=== PATIENT | female | born 1950 | race Caucasian/White ===

== ENCOUNTER 2021-02-17 08:53 | Observation (INO) ==
--- NOTE | 2021-02-17 09:43 | Emergency Department Note ---
History of Present Illness General Chief complaint: Rectal Bleed Stated complaint: RECTAL BLEED Time Seen by Provider: 02/17/21 09:22 Source: patient History of Present Illness Provider complaint: Rectal bleeding Onset (ago): hour(s) Location: buttocks Pain Consistency: + intermittent Quality: + other (Dark red blood) Relieved By: + none Associated symptoms: no chest pain, no cough, no fever/chills, no nausea/vomiting, no shortness of breath and no weakness This is a 71-year-old female who presents with rectal bleeding abdominal discomfort starting this morning approximately 6 AM. She described the pain as a cramping sensation in her lower abdomen. It was relieved after having a bowel movement. She had a little bit of pain yesterday as well. She had not had a bowel movement in some time and so she had a hard stool yesterday which was somewhat painful coming out. She states the stool is dark but not black. She states that today she had initially some stool when she defecated but now dark blood is coming out. He has no pain with defecation currently. She has not had a colonoscopy. She is scheduled for one last year but never had one due to the Covid pandemic. She denies any fever, lightheadedness, cough or cold symptoms, chest pain, shortness of breath, vomiting or urinary symptoms. She is not on any blood thinners other than a baby aspirin daily. She denies significant NS AID use. She denies any family history of colon cancer. She states she has a history of external hemorrhoids. Home Medications Medication Instructions Recorded Confirmed Type aspirin [Aspir-81] 81 mg PO QAM 02/17/21 02/17/21 History cholecalciferol (vitamin D3) 0 mcg PO QAM 02/17/21 02/17/21 History [Vitamin D3] cyanocobalamin (vitamin B-12) 0 mcg PO QAM 02/17/21 02/17/21 History [Vitamin B-12] garlic 0 mg PO QAM 02/17/21 02/17/21 History omega 0-uyk-rph-fish oil [Fish Oil] 1 cap PO QAM 02/17/21 02/17/21 History Allergies Allergy/AdvReac Type Severity Reaction Status Date / Time No Known Allergies Allergy Unverified 02/17/21 10:37 Past Med/Surg History Medical History (Updated 02/17/21 @ 14:32 by Ramon Dorman MD) No significant past medical history Surgical History (Updated 02/17/21 @ 12:34 by Cristino Akins MD) History of cataract surgery History of hysterectomy b/l oophrectomy Family History (Updated 02/17/21 @ 12:16 by Cristino Akins MD) Denies family history of Cancer Social History Smoking Status: Never smoker Preferred Language: Divehi Feels Safe at Home: Yes Review of Systems See HPI for pertinent positives & negatives. and A total of 10 systems reviewed and were otherwise negative Physical Exam Vital Signs Vital Signs - 24 hr 02/17/21 08:56 02/17/21 09:36 02/17/21 09:51 Temperature 36.4 C L Temperature Source Temporal Artery Scan Pulse Rate 104 H 102 H Pulse Rate [Right Finger] Pulse Rate from SpO2 Sensor 108 H Pulse Rhythm [Right Finger] Pulse Strength [Right Finger] Respiratory Rate 18 22 Respiratory Effort / Characteristics Respiratory Depth Blood Pressure 119/72 146/84 H Blood Pressure [Right Arm] Blood Pressure Mean 87 104 Blood Pressure Mean [Right Arm] Blood Pressure Position Sitting Blood Pressure Position [Right Arm] Pulse Oximetry 98 97 Oxygen Delivery Method Room Air Room Air Sepsis Recent Fever Within 48 Hours No Sepsis New/Unexplained Change in Mental Status No Sepsis Action Taken by Nursing No Action Required 02/17/21 09:53 02/17/21 10:00 02/17/21 11:12 Temperature Temperature Source Pulse Rate 94 H 95 H 104 H Pulse Rate [Right Finger] Pulse Rate from SpO2 Sensor 94 H 95 H 105 H Pulse Rhythm [Right Finger] Pulse Strength [Right Finger] Respiratory Rate 17 18 17 Respiratory Effort / Characteristics Respiratory Depth Blood Pressure 145/103 H Blood Pressure [Right Arm] Blood Pressure Mean 117 Blood Pressure Mean [Right Arm] Blood Pressure Position Blood Pressure Position [Right Arm] Pulse Oximetry 97 97 98 Oxygen Delivery Method Sepsis Recent Fever Within 48 Hours Sepsis New/Unexplained Change in Mental Status Sepsis Action Taken by Nursing 02/17/21 11:20 02/17/21 11:30 02/17/21 11:33 Temperature Temperature Source Pulse Rate 103 H 119 H Pulse Rate [Right Finger] Pulse Rate from SpO2 Sensor 103 H 119 H Pulse Rhythm [Right Finger] Pulse Strength [Right Finger] Respiratory Rate 13 28 H Respiratory Effort / Characteristics Respiratory Depth Blood Pressure Blood Pressure [Right Arm] Blood Pressure Mean 140 Blood Pressure Mean [Right Arm] Blood Pressure Position Blood Pressure Position [Right Arm] Pulse Oximetry 97 97 Oxygen Delivery Method Sepsis Recent Fever Within 48 Hours Sepsis New/Unexplained Change in Mental Status Sepsis Action Taken by Nursing 02/17/21 11:40 02/17/21 11:50 02/17/21 12:00 Temperature Temperature Source Pulse Rate 103 H 105 H Pulse Rate [Right Finger] Pulse Rate from SpO2 Sensor 104 H 109 H 107 H Pulse Rhythm [Right Finger] Pulse Strength [Right Finger] Respiratory Rate 14 16 Respiratory Effort / Characteristics Respiratory Depth Blood Pressure Blood Pressure [Right Arm] Blood Pressure Mean Blood Pressure Mean [Right Arm] Blood Pressure Position Blood Pressure Position [Right Arm] Pulse Oximetry 96 95 96 Oxygen Delivery Method Sepsis Recent Fever Within 48 Hours Sepsis New/Unexplained Change in Mental Status Sepsis Action Taken by Nursing 02/17/21 12:10 02/17/21 12:15 Temperature Temperature Source Pulse Rate Pulse Rate [Right Finger] 100 H Pulse Rate from SpO2 Sensor 108 H Pulse Rhythm [Right Finger] Regular Pulse Strength [Right Finger] Normal Respiratory Rate 20 Respiratory Effort / Characteristics Non-Labored Spontaneous Respiratory Depth Normal Blood Pressure Blood Pressure [Right Arm] 136/83 Blood Pressure Mean Blood Pressure Mean [Right Arm] 100 Blood Pressure Position Blood Pressure Position [Right Arm] Sitting Pulse Oximetry 96 97 Oxygen Delivery Method Room Air Sepsis Recent Fever Within 48 Hours Sepsis New/Unexplained Change in Mental Status Sepsis Action Taken by Nursing Constitutional: Vital signs reviewed. Eyes: Pupils are equal round reactive to light. Conjunctiva are noninjected. ENT: Pharynx is clear without erythema or exudate. Mucous membranes are moist. Neck supple without meningeal signs. Respiratory: Clear to auscultation bilaterally. Breath sounds are equal bilaterally. Cardiovascular: Regular rate and rhythm. No rubs or gallops. GI: Soft, nondistended and nontender. Bowel sounds are present. Rectal: Nonbleeding external hemorrhoid at 9:00. Dark red blood no stool present. Musculoskeletal: No peripheral edema. No lower extremity tenderness. Integumentary: No cyanosis. or jaundice. Neurological: The patient is awake and alert. No focal deficits. Psychiatric: Normal affect. Not anxious appearing. Course Administered Medications Discontinued Medications Sodium Chloride (Nss 1000ml) 500 mls @ 999 mls/hr IV .Q31M ONE Stop: 02/17/21 12:40 Last Infusion: 02/17/21 13:16 Dose: 0 mls/hr Documented by: [id number] Admin: 02/17/21 12:15 Dose: 999 mls/hr Documented by: [id number] Ioversol (Optiray 320 100ml) 94 ml IV ONCE ONE Stop: 02/17/21 10:26 Last Admin: 02/17/21 10:26 Dose: 94 ml Documented by: [id number] Medical Decision Making Differential Diagnosis GI bleed, internal hemorrhoids, diverticulosis, diverticulitis, AVM, colon mass Medical Records Attestation: I reviewed the patient's medical records. I did perform a limited focused review of portions of the patient's old chart on the electronic medical record. The patient has had no recent pertinent visits to this hospital. Home Medications Current Medication List: was personally reviewed by me Laboratory Data Attestation: I reviewed the patient's lab results. Result diagrams: 02/17/21 11:02 02/17/21 09:39 Lab Results 02/17/21 02/17/21 02/17/21 Range/Units 09:36 09:39 09:39 WBC 12.04 H (4.8-10.8) K/uL RBC 4.53 (4.2-5.4) M/uL Hgb 13.8 (12.0-16.0) g/dL Hct 39.4 (37-47) % MCV 87.0 (80-100) fL MCH 30.5 (25-34) pg MCHC 35.0 (32-36) g/dL RDW Std Deviation 40.7 (36.4-46.3) fL RDW Coeff of Nicole 12.7 (11.5-14.5) % Plt Count 296 (130-400) K/uL MPV 9.8 (7.4-10.4) fL Immature Gran % (Auto) 0.7 % Neut % (Auto) 65.8 % Lymph % (Auto) 25.7 % [place] % (Auto) 6.6 % Eos % (Auto) 1.0 % Baso % (Auto) 0.2 % Neut # (Auto) 7.91 H (1.4-6.5) K/uL Lymph # (Auto) 3.09 (1.2-3.4) K/uL [place] # (Auto) 0.80 H (0.11-0.59) K/uL Eos # (Auto) 0.12 (0-0.5) K/uL Baso # (Auto) 0.03 (0-0.2) K/uL Immature Gran # (Auto) 0.09 H (0.00-0.02) K/uL PT (9.0-12.0) Seconds INR (0.9-1.1) APTT (21.0-31.0) Seconds PTT Ratio Sodium (136-145) mmol/L Potassium (3.5-5.1) mmol/L Chloride (98-107) mmol/L Carbon Dioxide (21-32) mmol/L Anion Gap (3-11) BUN (7-18) mg/dl Creatinine (0.6-1.2) mg/dl Est Cr Clr Drug Dosing ml/min Est GFR ( Amer) ml/min Est GFR (Non-Af Amer) ml/min BUN/Creatinine Ratio (10-20) Glucose (70-99) mg/dl Calcium (8.5-10.1) mg/dl Total Bilirubin (0.2-1) mg/dl AST (15-37) U/L ALT (12-78) U/L Alkaline Phosphatase (45-117) U/L Total Protein (6.4-8.2) gm/dl Albumin (3.4-5.0) gm/dl Globulin (2.5-4.0) gm/dl Albumin/Globulin Ratio (0.9-2) POC Stool Occult Blood Positive A (Negative) COVID-19 Eval Order SARS-CoV-2 (PCR) (Negative) Blood Type B Positive Antibody Screen NEGATIVE 02/17/21 02/17/21 02/17/21 Range/Units 09:39 09:39 11:02 WBC (4.8-10.8) K/uL RBC (4.2-5.4) M/uL Hgb 12.8 (12.0-16.0) g/dL Hct 36.6 L (37-47) % MCV (80-100) fL MCH (25-34) pg MCHC (32-36) g/dL RDW Std Deviation (36.4-46.3) fL RDW Coeff of Nicole (11.5-14.5) % Plt Count (130-400) K/uL MPV (7.4-10.4) fL Immature Gran % (Auto) % Neut % (Auto) % Lymph % (Auto) % [place] % (Auto) % Eos % (Auto) % Baso % (Auto) % Neut # (Auto) (1.4-6.5) K/uL Lymph # (Auto) (1.2-3.4) K/uL [place] # (Auto) (0.11-0.59) K/uL Eos # (Auto) (0-0.5) K/uL Baso # (Auto) (0-0.2) K/uL Immature Gran # (Auto) (0.00-0.02) K/uL PT 10.4 (9.0-12.0) Seconds INR 1.0 (0.9-1.1) APTT 24.4 (21.0-31.0) Seconds PTT Ratio 0.9 Sodium 141 (136-145) mmol/L Potassium 4.2 (3.5-5.1) mmol/L Chloride 110 H (98-107) mmol/L Carbon Dioxide 22 (21-32) mmol/L Anion Gap 9.0 (3-11) BUN 21 H (7-18) mg/dl Creatinine 0.62 (0.6-1.2) mg/dl Est Cr Clr Drug Dosing 80.5 ml/min Est GFR ( Amer) 106.6 ml/min Est GFR (Non-Af Amer) 92.0 ml/min BUN/Creatinine Ratio 33.8 H (10-20) Glucose 152 H (70-99) mg/dl Calcium 9.1 (8.5-10.1) mg/dl Total Bilirubin 0.3 (0.2-1) mg/dl AST 21 (15-37) U/L ALT 49 (12-78) U/L Alkaline Phosphatase 94 (45-117) U/L Total Protein 7.0 (6.4-8.2) gm/dl Albumin 3.8 (3.4-5.0) gm/dl Globulin 3.2 (2.5-4.0) gm/dl Albumin/Globulin Ratio 1.2 (0.9-2) POC Stool Occult Blood (Negative) COVID-19 Eval Order SARS-CoV-2 (PCR) (Negative) Blood Type Antibody Screen 02/17/21 02/17/21 Range/Units 12:50 12:50 WBC (4.8-10.8) K/uL RBC (4.2-5.4) M/uL Hgb (12.0-16.0) g/dL Hct (37-47) % MCV (80-100) fL MCH (25-34) pg MCHC (32-36) g/dL RDW Std Deviation (36.4-46.3) fL RDW Coeff of Nicole (11.5-14.5) % Plt Count (130-400) K/uL MPV (7.4-10.4) fL Immature Gran % (Auto) % Neut % (Auto) % Lymph % (Auto) % [place] % (Auto) % Eos % (Auto) % Baso % (Auto) % Neut # (Auto) (1.4-6.5) K/uL Lymph # (Auto) (1.2-3.4) K/uL [place] # (Auto) (0.11-0.59) K/uL Eos # (Auto) (0-0.5) K/uL Baso # (Auto) (0-0.2) K/uL Immature Gran # (Auto) (0.00-0.02) K/uL PT (9.0-12.0) Seconds INR (0.9-1.1) APTT (21.0-31.0) Seconds PTT Ratio Sodium (136-145) mmol/L Potassium (3.5-5.1) mmol/L Chloride (98-107) mmol/L Carbon Dioxide (21-32) mmol/L Anion Gap (3-11) BUN (7-18) mg/dl Creatinine (0.6-1.2) mg/dl Est Cr Clr Drug Dosing ml/min Est GFR ( Amer) ml/min Est GFR (Non-Af Amer) ml/min BUN/Creatinine Ratio (10-20) Glucose (70-99) mg/dl Calcium (8.5-10.1) mg/dl Total Bilirubin (0.2-1) mg/dl AST (15-37) U/L ALT (12-78) U/L Alkaline Phosphatase (45-117) U/L Total Protein (6.4-8.2) gm/dl Albumin (3.4-5.0) gm/dl Globulin (2.5-4.0) gm/dl Albumin/Globulin Ratio (0.9-2) POC Stool Occult Blood (Negative) COVID-19 Eval Order Covid19 at [facility] SARS-CoV-2 (PCR) NEGATIVE (Negative) Blood Type Antibody Screen Imaging Data Radiologist's Impression: Abdomen/Pelvis CT 02/17/21 09:36 CT OF THE ABDOMEN AND PELVIS WITH CONTRAST CLINICAL HISTORY: Lower abdominal pain. Rectal bleeding. COMPARISON STUDY: None. TECHNIQUE: Following IV administration of 94 mL of Optiray, axial images of the abdomen and pelvis were obtained from the lung bases to the proximal femurs. I mages were reviewed in the axial, sagittal, and coronal planes. IV contrast was administered without complication. Automated exposure control was utilized for the study. A dose lowering technique was utilized adhering to the principles of ALARA. CT DOSE: 500.43 mGy.cm FINDINGS: Within visualized portions of the lower chest, there is a 9 mm solid slightly lobulated right lower lobe nodule on image 13 of 461. This does not contain calcifications. There is no definite macroscopic fat. Hepatic steatosis is noted. The spleen, adrenal glands, kidneys and pancreas are normal. There is no biliary or pancreatic ductal dilatation. No peripancreatic or pericholecystic infiltration is present. There is mild dilatation of the proximal celiac axis, measuring 1.1 cm in caliber. There is no hydronephrosis. There is no evidence for a bowel obstruction. Sigmoid diverticulosis is noted without evidence for acute diverticulitis. Note is made of hyperdense material suggestive of intraluminal contrast within the mid ascending colon. There is an adjacent 2.5 cm lobulated density within the ascending colon on image 247. There is no lymphadenopathy. There is no evidence for a bowel obstruction. Major vasculature is patent. There is moderate plaque of the abdominal aorta which is normal in caliber. No suspicious osseous lesions are present. IMPRESSION: 1. Hyperdense material suggestive of intraluminal contrast within the mid ascending colon. This suggests active intraluminal colonic bleeding. Adjacent 2.5 cm lobulated density within the ascending colon. This is suboptimally assessed by CT and could reflect an underlying mass, blood clot or stool. Correlation with follow-up colonoscopy is recommended. Findings discussed with Dr. Dorman at time of dictation. 2. 9 mm solid right lower lobe pulmonary nodule. This nodule is indeterminate. A chest CT in 3 months is recommended. 3. Left colon diverticulosis without evidence for acute diverticulitis. 4. Hepatic steatosis. ACT 112: Positive. There are findings on this exam that require communication between the performing entity and the patient following Patient Test Result Information Act ([place] Act 112) guidelines. Electronically signed by: Lex Granados M.D. 02/17/2021 10:45 AM ECG Data Attestation: I personally reviewed and interpreted this ECG as follows: Indication: + tachycardia and + other (GI bleed) Rate (beats per minute): 106 Rhythm: + sinus tachycardia ECG ST segments: no ST elevation and no T-wave inversions ECG Findings: no PVCs MDM Narrative I did evaluate the patient as noted above. The patient is presenting with rectal bleeding. She does not have any other symptoms other than resolved abdominal discomfort. She does have dark blood without stool on rectal examination. IV access was established. I did place an order for continuous cardiac monitoring. The monitor showed sinus tachycardia at a rate of 102 bpm. I did order and personally review the patient's 12-lead EKG as described above. She has no evidence of acute ischemia. I did order and review the patient's blood work as noted in the electronic medical record. Her white blood cell count is 12. Hemoglobin is 13.8. Repeat hemoglobin an hour and 20 minutes later was 12.8. Platelet count is within normal limits. Electrolytes and LFTs are within normal limits other than a chloride of 110. I did order a CT of the abdomen and pelvis. I did review the images myself as well as the radiology report as described above. She does appear to have intravenous dye in the lumen of the bowel on the right colon. There is also a lobulated structure associated with it which may be blood or a mass. I did discuss the case with the radiologist. I did discuss the case with Dr. Gonzalez of gastroenterology who recommended the patient be prepped for colonoscopy for tomorrow morning. I did discuss the case with the hospitalist and behavioral health case manager for admission to the hospital. I did discuss the test results and the plan with the patient. Impression & Plan Lower GI bleed Discharge Plan Visit Data Chief Complaint: Rectal Bleed Stated Complaint: RECTAL BLEED ED Provider: Ramon Dorman Discharge Problem: Lower GI bleed Forms Stand Alone Forms: My [facility] Prescriptions Prescriptions: No Action cyanocobalamin (vitamin B-12) [Vitamin B-12] 1,000 mcg Tablet 0 mcg PO QAM RF: 0 aspirin [Aspir-81] 81 mg Tablet,Delayed Release (Dr/Ec) 81 mg PO QAM RF: 0 garlic 1,000 mg Capsule 0 mg PO QAM RF: 0 cholecalciferol (vitamin D3) [Vitamin D3] 25 mcg (1,000 unit) Tablet 0 mcg PO QAM RF: 0 omega 9-lny-bfd-fish oil [Fish Oil] 1,200 (144-216) mg Capsule 1 cap PO QAM RF: 0
[2021-02-17 09:53] LABS: Basophils # (auto) 0.03 K/uL (0-0.2); Basophils % (auto) 0.2 %; Eosinophils # (auto) 0.12 K/uL (0-0.5); Hematocrit (blood only) 39.4 % (37-47); Hemoglobin 13.8 g/dL (12.0-16.0); Immature Granulocytes # (auto) 0.09 K/uL (0.00-0.02); Immature Granulocytes % (auto) 0.7 %; Lymphocytes # (auto) 3.09 K/uL (1.2-3.4); Lymphocytes % (auto) 25.7 %; Mean Corpuscular Hemoglobin 30.5 pg (25-34); Mean Platelet Volume 9.8 fL (7.4-10.4); Monocytes % (auto) 6.6 %; Neutrophils # (auto) 7.91 K/uL (1.4-6.5); Neutrophils % (auto) 65.8 %; Platelet Count 296 K/uL (130-400); RDW Coefficient of Variation 12.7 % (11.5-14.5); RDW Standard Deviation 40.7 fL (36.4-46.3); Red Blood Count 4.53 M/uL (4.2-5.4); White Blood Count 12.04 K/uL (4.8-10.8)
[2021-02-17 10:04] LABS: Partial Thromboplastin Ratio 0.9; Partial Thromboplastin Time 24.4 Seconds (21.0-31.0); Prothrombin Time 10.4 Seconds (9.0-12.0)
[2021-02-17 10:10] LABS: Albumin Level 3.8 gm/dl (3.4-5.0); BUN Creatinine Ratio 33.8 (10-20); Calcium 9.1 mg/dl (8.5-10.1); Creatinine Clr Calc Pharmacy 80.5 ml/min; Est GFR (African American) 106.6 ml/min; Potassium 4.2 mmol/L (3.5-5.1)
[2021-02-17 10:13] LABS: Albumin Globulin Ratio 1.2 (0.9-2); Bilirubin,Total 0.3 mg/dl (0.2-1); Globulin 3.2 gm/dl (2.5-4.0)
[2021-02-17] MEDS ORDERED: OPTIRAY 320 100ml IV ONE (10:25)
--- NOTE | 2021-02-17 10:46 | CT Scan Report ---
CT OF THE ABDOMEN AND PELVIS WITH CONTRAST CLINICAL HISTORY: Lower abdominal pain. Rectal bleeding. COMPARISON STUDY: None. TECHNIQUE: Following IV administration of 94 mL of Optiray, axial images of the abdomen and pelvis we re obtained from the lung bases to the proximal femurs. Images were reviewed in the axial, sagittal, and coronal planes. IV contrast was administered without complication. Automated exposure control wa s utilized for the study. A dose lowering technique was utilized adhering to the principles of ALARA . CT DOSE: 500.43 mGy.cm FINDINGS: Within visualized portions of the lower chest, there is a 9 mm solid slightly lobulated rig ht lower lobe nodule on image 13 of 461. This does not contain calcifications. There is no definite m acroscopic fat. Hepatic steatosis is noted. The spleen, adrenal glands, kidneys and pancreas are norm al. There is no biliary or pancreatic ductal dilatation. No peripancreatic or pericholecystic infiltr ation is present. There is mild dilatation of the proximal celiac axis, measuring 1.1 cm in caliber. There is no hydronephrosis. There is no evidence for a bowel obstruction. Sigmoid diverticulosis is n oted without evidence for acute diverticulitis. Note is made of hyperdense material suggestive of int raluminal contrast within the mid ascending colon. There is an adjacent 2.5 cm lobulated density with in the ascending colon on image 247. There is no lymphadenopathy. There is no evidence for a bowel ob struction. Major vasculature is patent. There is moderate plaque of the abdominal aorta which is norm al in caliber. No suspicious osseous lesions are present. IMPRESSION: 1. Hyperdense material suggestive of intraluminal contrast within the mid ascending colon. This sugge sts active intraluminal colonic bleeding. Adjacent 2.5 cm lobulated density within the ascending colo n. This is suboptimally assessed by CT and could reflect an underlying mass, blood clot or stool. Cor relation with follow-up colonoscopy is recommended. Findings discussed with Dr. Dorman at time of dicta tion. 2. 9 mm solid right lower lobe pulmonary nodule. This nodule is indeterminate. A chest CT in 3 months is recommended. 3. Left colon diverticulosis without evidence for acute diverticulitis. 4. Hepatic steatosis. ACT 112: Positive. There are findings on this exam that require communication between the performing entity and the patient following Patient Test Result Information Act ([place] Act 112) guidelines. Electronically signed by: Lex Granados M.D. 02/17/2021 10:45 AM
[2021-02-17 11:13] LABS: Hematocrit (blood only) 36.6 % (37-47); Hemoglobin 12.8 g/dL (12.0-16.0)
--- NOTE | 2021-02-17 11:53 | History & Physical Report ---
Date of Service February 17, 2021 Assessment & Plan (1) Lower GI bleed: Concerning for colon cancer with 2.5 cm lobulated density in ascending colon. Trend H&H Q6H. Clear liquid diet today, NPO after midnight. Maintenance IV fluids with half NSS. Consult GI for colonoscopy tomorrow. (2) Pulmonary nodule: 9 mm solid right lower lobe pulmonary nodule. Repeat CT chest in 3 months. (3) History of cataract surgery: Patient will have her daughter bring in eyedrops. Will prescribe once they are delivered. Admission and Anticipated Discharge Date Admission Date: February 17, 2021 History of Present Illness Chief Complaint: Rectal bleeding Primary Care Provider: Jessica Ernst PA-C Leandra Lee is a 71 year old female who presents to the ER due to rectal bleeding that starting this morning at approximately 6am. Last took an aspirin yesterday (takes for primary prevention). Blood initially dark but now increasingly red. Constipation yesterday morning had to strain to go, but otherwise no recent change in bowel movements. No abdominal pain, nausea or vomiting. Prior colonoscopy normal 10 years ago although she does not remember who performed this. No NSAID use. No family history of colon cancer, IBS or IBD. In the ER hemoglobin decreased from 13.9-12.8. CT concerning for active intraluminal colonic bleeding. Adjacent 2.5 cm lobulated density in the ascending colon. She was referred to medicine for admission ongoing management of GI bleed. Allergies Allergy/AdvReac Type Severity Reaction Status Date / Time No Known Allergies Allergy Unverified 02/17/21 10:37 Home Medications Medication Instructions Recorded Confirmed Type aspirin [Aspir-81] 81 mg PO QAM 02/17/21 02/17/21 History cholecalciferol (vitamin D3) 0 mcg PO QAM 02/17/21 02/17/21 History [Vitamin D3] cyanocobalamin (vitamin B-12) 0 mcg PO QAM 02/17/21 02/17/21 History [Vitamin B-12] garlic 0 mg PO QAM 02/17/21 02/17/21 History omega 0-khn-gdz-fish oil [Fish Oil] 1 cap PO QAM 02/17/21 02/17/21 History Past Med/Surg History Medical History (Updated 02/17/21 @ 12:30 by Cristino Akins MD) No significant past medical history Surgical History (Updated 02/17/21 @ 12:34 by Cristino Akins MD) History of cataract surgery History of hysterectomy b/l oophrectomy Family History (Updated 02/17/21 @ 12:16 by Cristino Akins MD) Denies family history of Cancer Social History Smoking Status: Never smoker Preferred Language: Sri Lankan Feels Safe at Home: Yes Review of Systems Review of Systems: All systems reviewed & are unremarkable except as noted in HPI & below Physical Exam Constitutional: WD/WN, vitals as above Eyes: PERRL, conjunctivae normal, anicteric sclerae ENMT: external ear and nose normal, oropharynx normal Neck: trachea midline, no thyromegaly Respiratory: normal respiratory effort, lungs clear to auscultation Cardiovascular: Rate/Rhythm: regular rhythm and + tachycardic Heart Sounds: no murmur Extremities: normal capillary refill; no calf tenderness and no pedal edema Gastrointestinal (Abdomen): normal bowel sounds, soft, nontender, no hepatosplenomegaly Musculoskeletal: no cyanosis or clubbing, extremities motor strength 5/5 Skin: no rashes, warm and dry Neurologic: moves all extremities and awake; no focal motor deficits and not confused Psychiatric: A+Ox3, euthymic affect Results & Data Results & Data ([facility]) Vital Signs (Past 12 Hours) Vital Signs Temp Pulse Resp BP Pulse Ox 02/17/21 08:56 36.4 C L 104 H 18 119/[address] OF THE ABDOMEN AND PELVIS WITH CONTRAST IMPRESSION: 1. Hyperdense material suggestive of intraluminal contrast within the mid ascending colon. This suggests active intraluminal colonic bleeding. Adjacent 2.5 cm lobulated density within the ascending colon. This is suboptimally assessed by CT and could reflect an underlying mass, blood clot or stool. Correlation with follow-up colonoscopy is recommended. Findings discussed with Dr. Dorman at time of dictation. 2. 9 mm solid right lower lobe pulmonary nodule. This nodule is indeterminate. A chest CT in 3 months is recommended. 3. Left colon diverticulosis without evidence for acute diverticulitis. 4. Hepatic steatosis. Medications Administered ER Medications Given: None ECG Indication: abdominal pain Rate (beats per minute): 106 Rhythm: sinus tachycardia Findings: no acute ischemic change Comparison ECG Date: no prior available Code Status & VTE Plan Code Status Full VTE Prophylaxis Plan VTE Prophylaxis will be ordered: Yes Reason for no VTE drug order: Contraindicated PG Care Time/CCT Total # of Minutes Spent Total Time Spent with Patient: Total time spent is greater than 50% in coordination of care (as documented) at patient's floor/unit and/or counseling patient: Coding Level of Care Code 00911 Initial Inpt Care Lvl 2 Diagnoses Lower GI bleed K92.2 Pulmonary nodule R91.1 History of cataract surgery Z98.49 Laterality: unspecified laterality (1) History of cataract surgery Laterality: unspecified laterality Qualified Code(s): Z98.49 - Cataract extraction status, unspecified eye
[2021-02-17] MEDS ORDERED: SODIUM CHLORIDE 0.9% 1000ML 500 ML IV ONE (12:10)
[2021-02-17] MEDS ORDERED: ACETAMINOPHEN 325 MG TAB PO PRN (15:55)
[2021-02-17] MEDS: SODIUM CHLORIDE 0.45 % 1,000 ML IV SCH (16:23)
[2021-02-17 16:57] LABS: Hematocrit (blood only) 31.8 % (37-47); Hemoglobin 11.1 g/dL (12.0-16.0)
[2021-02-17] MEDS: LAVAGE SOLUTION 4000ML PO SCH (21:37)
[2021-02-17 23:06] LABS: Hematocrit (blood only) 30.2 % (37-47); Hemoglobin 10.4 g/dL (12.0-16.0)
[2021-02-18] MEDS: SODIUM CHLORIDE 0.45 % 1,000 ML IV SCH ×2 (02:55→12:42)
[2021-02-18] MEDS: LAVAGE SOLUTION 4000ML PO SCH (07:07)
[2021-02-18 07:13] LABS: Basophils # (auto) 0.02 K/uL (0-0.2); Basophils % (auto) 0.2 %; Eosinophils # (auto) 0.32 K/uL (0-0.5); Eosinophils % (auto) 2.8 %; Hematocrit (blood only) 27.1 % (37-47); Hemoglobin 9.2 g/dL (12.0-16.0); Immature Granulocytes # (auto) 0.06 K/uL (0.00-0.02); Immature Granulocytes % (auto) 0.5 %; Lymphocytes # (auto) 4.64 K/uL (1.2-3.4); Mean Corpuscular Hgb Conc 33.9 g/dL (32-36); Mean Corpuscular Volume 88.3 fL (80-100); Mean Platelet Volume 9.6 fL (7.4-10.4); Monocytes # (auto) 0.86 K/uL (0.11-0.59); Monocytes % (auto) 7.4 %; Neutrophils # (auto) 5.71 K/uL (1.4-6.5); Neutrophils % (auto) 49.1 %; Platelet Count 257 K/uL (130-400); RDW Coefficient of Variation 13.1 % (11.5-14.5); RDW Standard Deviation 42.2 fL (36.4-46.3); Red Blood Count 3.07 M/uL (4.2-5.4); White Blood Count 11.61 K/uL (4.8-10.8)
[2021-02-18 07:50] LABS: Calcium 8.2 mg/dl (8.5-10.1); Est GFR (Non-African American) 97.5 ml/min; Potassium 4.1 mmol/L (3.5-5.1)
--- NOTE | 2021-02-18 09:07 | Gastrointestinal Consultation ---
Date of Consultation February 18, 2021 Assessment & Plan (1) Lower GI bleed: (2) Abnormal CT scan, colon: -Keep NPO -Proceed with colonoscopy today for further evaluation of CT findings of active bleeding & possible lesion -Continue to monitor H/H -Supportive care per primary team Thank you for allowing us to participate in the care of this patient. If you should have any further questions or concerns, do not hesitate to contact us at extension [phone] or [phone]. Present on Admission?: Yes Supervising Physician Co-Signing Physician Notes Agree with MARTA Kwan as above Abd: Soft, NT, ND, +BS Continue current therapy NPO Completed bowel prep earlier today Colonoscopy now. History of Present Illness Reason for Consultation: GI bleed Attending Physician: Dorina Alexander MD History of Present Illness Patient is a 71 yo female with PMH of cataracts who presented to the ED on 02/17/21 with an acute onset of rectal bleeding. She notes that this occurred for the first time yesterday. She noted dark blood that then changed to bright red blood as time went on. She notes a chronic history of constipation. She denies straining or abdominal pain. She notes she had a colonoscopy 10 years ago but cannot remember where. She states that it was unremarkable. She denies nausea, vomiting, diarrhea, or unintentional weight loss. She takes a Baby Aspirin daily. She denies family history of GI abnormalities. In the ER hemoglobin was 12.8. H/H now 9.2/27.1. CT concerning for active intraluminal colonic bleeding. Adjacent 2.5 cm lobulated density in the ascending colon. She was referred to medicine for admission ongoing management of GI bleed. Patient completed a bowel prep last night. She reports clear bowel movements at present. Allergies Allergy/AdvReac Type Severity Reaction Status Date / Time No Known Allergies Allergy Unverified 02/18/21 15:07 Home Medications Medication Instructions Recorded Confirmed Type aspirin [Aspir-81] 81 mg PO QAM 02/17/21 02/17/21 History cholecalciferol (vitamin D3) 0 mcg PO QAM 02/17/21 02/17/21 History [Vitamin D3] cyanocobalamin (vitamin B-12) 0 mcg PO QAM 02/17/21 02/17/21 History [Vitamin B-12] garlic 0 mg PO QAM 02/17/21 02/17/21 History omega 2-lxc-bfe-fish oil [Fish Oil] 1 cap PO QAM 02/17/21 02/17/21 History Patient History Medical History (Updated 02/18/21 @ 09:21 by Kurt Rahman MD) Abnormal CT scan, colon Lower GI bleed No significant past medical history Pulmonary nodule Surgical History History of cataract surgery History of hysterectomy b/l oophrectomy Family History Denies family history of Cancer Social History Smoking Status: Never smoker Second Hand Exposure: No; Do You Dip or Chew Tobacco: No; Tobacco Cessation Education Requested by Patient: No Hx Alcohol Use: No Hx Substance Use: No Preferred Language: Guamanian Communication Ability: Effective Beliefs That Will Affect Care: Confucianist Current Living Situation: Alone Feels Safe at Home: No Is there a partner from a previous relationship who is making you feel unsafe now?: No Any Concerns about Your Family Situation: No Would You Like to Speak to Someone About Your Situation: No Safety Concerns: Feels Safe At This Time Assistive Devices: None Review of Systems Constitutional: no weight loss Respiratory: no cough and no dyspnea Cardiovascular: no chest pain Gastrointestinal: + constipation and + blood in stools; no abdominal pain Psychiatric: no problem reported Physical Exam Constitutional: well developed Respiratory: normal respiratory effort Cardiovascular: Extremities: no edema Gastrointestinal (Abdomen): normal bowel sounds, soft, nontender, no hepatosplenomegaly Musculoskeletal: Head/Neck/Chest: normocephalic Psychiatric: A+Ox3, euthymic affect Results & Data ([facility]) Vital Signs (Past 12 Hours) Vital Signs Temp Pulse Resp BP BP Pulse Ox 02/18/21 08:35 36.8 C 90 16 136/74 95 02/17/21 22:30 36.7 C 80 18 132/78 98 PG Care Time/CCT Total # of Minutes Spent Total Time Spent with Patient: Total time spent is greater than 50% in coordination of care (as documented) at patient's floor/unit and/or counseling patient: Coding Level of Care Code 78534 Initial Inpt Care Lvl 3 Diagnoses Lower GI bleed K92.[address] scan, colon R93.3
--- NOTE | 2021-02-18 09:21 | Anesthesiology Consultation ---
Date of Service February 18, 2021 Assessment & Plan Chart Review Chart Review: Acceptable Risk for Surgery, Patient NOT seen in Pre Admission Testing and order entry clerk initiated Consults Requested none ASA ASA3 Proposed Anesthesia Anesthesia Type: MAC Risk / Benefits Reviewed With: PT / POA / Parent / Guardian, Accepts Plan and Informed Consent Obtained History Surgery Operation Date: 02/18/21 16:40 Proposed Procedures p Colonoscopy Dr. Carlos Gonzalez, DO Height/Weight Height: 5 ft 2 in Weight: 73.7 kg Allergies Allergy/AdvReac Type Severity Reaction Status Date / Time No Known Allergies Allergy Unverified 02/17/21 10:37 Medications Home Medications Medication Instructions Recorded Confirmed Last Taken aspirin [Aspir-81] 81 mg PO QAM 02/17/21 02/17/21 02/16/21 cholecalciferol (vitamin D3) 0 mcg PO QAM 02/17/21 02/17/21 02/16/21 [Vitamin D3] cyanocobalamin (vitamin B-12) 0 mcg PO QAM 02/17/21 02/17/21 02/16/21 [Vitamin B-12] garlic 0 mg PO QAM 02/17/21 02/17/21 02/16/21 omega 3-yox-uhl-fish oil [Fish Oil] 1 cap PO QAM 02/17/21 02/17/21 02/16/21 Active Medications Generic Name Dose Route Start Last Admin Trade Name Freq PRN Reason Stop Dose Admin Acetaminophen 650 mg 02/17/21 15:55 02/17/21 18:36 Acetaminophen 325 Mg Tab PO 03/19/21 15:54 650 mg Q4H PRN Administration pain/fever Sodium Chloride 1,000 mls @ 100 mls/hr 02/17/21 15:55 02/18/21 02:55 1/2 Nss IV 03/19/21 15:54 100 mls/hr .Q10H DANA Administration Polyethylene Glycol/Electrolytes 8 dose 02/17/21 21:00 02/18/21 07:07 Lavage Solution 4000ml PO 02/18/21 12:00 8 dose TODAY@0700,2100 DANA Administration Past Medical History Medical History (Updated 02/18/21 @ 09:21 by Kurt Rahman MD) Abnormal CT scan, colon Lower GI bleed No significant past medical history Pulmonary nodule Past Family History Family History Denies family history of Cancer Past Surgical History Surgical History History of cataract surgery History of hysterectomy b/l oophrectomy Social History Smoking Status: Never smoker Do You Dip or Chew Tobacco: No Hx Alcohol Use: No Hx Substance Use: No Physical Exam Vital Signs Last Vital Signs Temp 36.8 C 02/18/21 08:35 Pulse 90 02/18/21 08:35 Resp 16 02/18/21 08:35 BP 136/74 02/18/21 08:35 Pulse Ox 95 02/18/21 08:35 Testing Laboratory Results 02/18/21 06:46 02/18/21 06:46 PT 10.4 Seconds (9.0-12.0) 02/17/21 09:39 INR 1.0 (0.9-1.1) 02/17/21 09:39 APTT 24.4 Seconds (21.0-31.0) 02/17/21 09:39 Blood Type B Positive 02/17/21 09:39 Antibody Screen NEGATIVE 02/17/21 09:39 Electrocardiogram 17-FEB-2021 11:10:18 [facility]-EDSTAT ROUTINE RETRIEVAL Sinus tachycardia Otherwise normal ECG No previous ECGs available
[2021-02-18 11:07] LABS: Hemoglobin 10.4 g/dL (12.0-16.0)
--- NOTE | 2021-02-18 12:34 | Electrocardiogram Report ---
Test Reason : Blood Pressure : / mmHG Vent. Rate : 106 BPM Atrial Rate : 106 BPM P-R Int : 114 ms QRS Dur : 082 ms QT Int : 332 ms P-R-T Axes : 056 -15 049 degrees QTc Int : 441 ms Sinus tachycardia Poor R wave progression, consider anterior PA vs. lead placement vs. LVH No previous ECGs available Confirmed by Morgan Mcfarland ([id number]) on 02/18/2021 12:34:10 PM Referred By: REFERRED SELF Confirmed By:Dewayne Mcfarland
[2021-02-18 15:09] LABS: Hematocrit (blood only) 29.4 % (37-47); Hemoglobin 10.2 g/dL (12.0-16.0); Mean Corpuscular Hemoglobin 30.1 pg (25-34); Mean Corpuscular Hgb Conc 34.7 g/dL (32-36); Mean Corpuscular Volume 86.7 fL (80-100); Mean Platelet Volume 9.4 fL (7.4-10.4); Platelet Count 280 K/uL (130-400); RDW Coefficient of Variation 13.1 % (11.5-14.5); RDW Standard Deviation 41.5 fL (36.4-46.3); Red Blood Count 3.39 M/uL (4.2-5.4); White Blood Count 11.31 K/uL (4.8-10.8)
[2021-02-18] MEDS ORDERED: PROPOFOL IV EMULSION 10 MG/ML 20 ML VIAL IV ONE (16:37)
--- NOTE | 2021-02-18 16:44 | GI REPORT ---
Patient Name: Leandra Lee Procedure Date: 02/18/2021 4:02 PM Date of : 1950 Admit Type: Inpatient Age: 71 Gender: Female Attending MD: Luke Gonzalez DO Procedure: Colonoscopy Providers: Luke Gonzalez DO Referring MD: Dorina Alexander Md Indications: Acute post hemorrhagic anemia Medicines: Monitored Anesthesia Care Complications: No immediate complications. Estimated Blood Loss: Estimated blood loss: none. Procedure: Pre-Anesthesia Assessment: - Prior to the procedure, a History and Physical was performed, and patient medications and allergies were reviewed. The patient's tolerance of previous anesthesia was also reviewed. The risks and benefits of the procedure and the sedation options and risks were discussed with the patient. All questions were answered, and informed consent was obtained. Prior Anticoagulants: The patient has taken no previous anticoagulant or antiplatelet agents. ASA Grade Assessment: II - A patient with mild systemic disease. After reviewing the risks and benefits, the patient was deemed in satisfactory condition to undergo the procedure. After I obtained informed consent, the scope was passed under direct vision. Throughout the procedure, the patient's blood pressure, pulse, and oxygen saturations were monitored continuously. The scope was introduced through the anus and advanced to the terminal ileum. The colonoscopy was performed without difficulty. The patient tolerated the procedure well. The quality of the bowel preparation was good. The terminal ileum, ileocecal valve, appendiceal orifice, and rectum were photographed. Findings: The perianal and digital rectal examinations were normal. Three sessile polyps were found in the ascending colon. The polyps were 3 to 4 mm in size. These polyps were removed with a hot snare. Resection and retrieval were complete. Two sessile polyps were found in the sigmoid colon and transverse colon. The polyps were 3 to 4 mm in size. These polyps were removed with a cold snare. Resection and retrieval were complete. Multiple small-mouthed diverticula were found in the sigmoid colon. Non-bleeding internal hemorrhoids were found during retroflexion. The hemorrhoids were small. Impression: - Three 3 to 4 mm polyps in the ascending colon, removed with a hot snare. Resected and retrieved. - Two 3 to 4 mm polyps in the sigmoid colon and in the transverse colon, removed with a cold snare. Resected and retrieved. - Diverticulosis in the sigmoid colon. - Non-bleeding internal hemorrhoids. Recommendation: - Return patient to [facility] for [facility] care. - Advance diet as tolerated. - Repeat colonoscopy for surveillance based on pathology results. Luke Gonzalez, DO 02/18/2021 4:43:43 PM This report has been signed electronically. Note Initiated On: 02/18/2021 4:02 PM Number of Addenda: 0 I attest to the content of the Intraoperative Record and orders documented therein, exceptions below {[id number]}
--- NOTE | 2021-02-18 16:55 | Anesthesiology Progress Note ---
Date of Service February 18, 2021 Anesthesia Post Procedure Vital Signs Vital Signs: Temp Pulse Resp BP BP Pulse Ox 02/18/21 16:54 83 16 150/84 H 97 02/18/21 16:41 87 16 119/60 97 02/18/21 15:15 37.1 C 86 18 162/81 H 97 02/18/21 08:35 36.8 C 90 16 136/74 95 02/17/21 22:30 36.7 C 80 18 132/78 98 Transfer of Care Handoff Completed per policy Notes Mental Status: alert / awake / arousable Patient Amnestic to Procedure: Yes Nausea / Vomiting: adequately controlled Pain: adequately controlled Airway Patency, RR, SpO2: stable & adequate BP & HR: stable & adequate Hydration State: stable & adequate Anesthetic Complications: no major complications apparent and Pt Satisfied with anesthetic care
[2021-02-18] MEDS ORDERED: GATIFLOXACIN OPR SCH (17:00)
[2021-02-18] MEDS ORDERED: BROMFENAC OPR SCH (17:00)
[2021-02-18] MEDS ORDERED: PREDNISOLONE OPR SCH (17:00)
--- NOTE | 2021-02-18 18:52 | Discharge Summary ---
Date of Service February 18, 2021 Admission HPI Per Admitting Provider Leandra Lee is a 71 year old female who presents to the ER due to rectal bleeding that starting this morning at approximately 6am. Last took an aspirin yesterday (takes for primary prevention). Blood initially dark but now increasingly red. Constipation yesterday morning had to strain to go, but otherwise no recent change in bowel movements. No abdominal pain, nausea or vomiting. Prior colonoscopy normal 10 years ago although she does not remember who performed this. No NSAID use. No family history of colon cancer, IBS or IBD. In the ER hemoglobin decreased from 13.9-12.8. CT concerning for active intr aluminal colonic bleeding. Adjacent 2.5 cm lobulated density in the ascending colon. She was referred to medicine for admission ongoing management of GI bleed. Principal Diagnosis Acute blood loss anemia in setting of GI bleed, Colon CA ruled out, Lower GI Bleed Discharge Exam Constitutional WD/WN, vitals as above Eyes + anicteric sclerae ENMT external ear and nose normal, oropharynx normal Neck trachea midline, no thyromegaly Respiratory normal respiratory effort, lungs clear to auscultation Cardiovascular RRR, no murmur, no edema Chest (Breasts) Chest: normal inspection of chest Gastrointestinal (Abdomen) normal bowel sounds, soft, nontender, no hepatosplenomegaly Musculoskeletal Extremities: extremities normal to inspection; no cyanosis and no clubbing Skin no rashes, warm and dry Neurologic moves all extremities and awake; no focal motor deficits Psychiatric A+Ox3, euthymic affect Lymphatic no lymphedema Discharge Data Allergies Allergy/AdvReac Type Severity Reaction Status Date / Time No Known Allergies Allergy Unverified 02/18/21 15:07 Consultations 02/17/21 11:17 ED Decision to Admit Stat 02/17/21 11:50 Consult Gastroenterology Routine Procedures Performed Operation Date: 02/18/21 16:15 Actual Procedures p Colonoscopy Polypectomy - Luke Riley Case, DO Ordered Studies 02/17/21 09:36 CT abd pelvis IV con only Stat Abdomen/Pelvis CT 02/17/21 09:36 CT OF THE ABDOMEN AND PELVIS WITH CONTRAST CLINICAL HISTORY: Lower abdominal pain. Rectal bleeding. COMPARISON STUDY: None. TECHNIQUE: Following IV administration of 94 mL of Optiray, axial images of the abdomen and pelvis were obtained from the lung bases to the proximal femurs. Images were reviewed in the axial, sagittal, and coronal planes. IV contrast was administered without complication. Automated exposure control was utilized for the study. A dose lowering technique was utilized adhering to the principles of ALARA. CT DOSE: 500.43 mGy.cm FINDINGS: Within visualized portions of the lower chest, there is a 9 mm solid slightly lobulated right lower lobe nodule on image 13 of 461. This does not contain calcifications. There is no definite macroscopic fat. Hepatic steatosis is noted. The spleen, adrenal glands, kidneys and pancreas are normal. There is no biliary or pancreatic ductal dilatation. No peripancreatic or pericholecystic infiltration is present. There is mild dilatation of the proximal celiac axis, measuring 1.1 cm in caliber. There is no hydronephrosis. There is no evidence for a bowel obstruction. Sigmoid diverticulosis is noted without evidence for acute diverticulitis. Note is made of hyperdense material suggestive of intraluminal contrast within the mid ascending colon. There is an adjacent 2.5 cm lobulated density within the ascending colon on image 247. There is no lymphadenopathy. There is no evidence for a bowel obstruction. Major vasculature is patent. There is moderate plaque of the abdominal aorta which is normal in caliber. No suspicious osseous lesions are present. IMPRESSION: 1. Hyperdense material suggestive of intraluminal contrast within the mid ascending colon. This suggests active intraluminal colonic bleeding. Adjacent 2.5 cm lobulated density within the ascending colon. This is suboptimally assessed by CT and could reflect an underlying mass, blood clot or stool. Correlation with follow-up colonoscopy is recommended. Findings discussed with Dr. Dorman at time of dictation. 2. 9 mm solid right lower lobe pulmonary nodule. This nodule is indeterminate. A chest CT in 3 months is recommended. 3. Left colon diverticulosis without evidence for acute diverticulitis. 4. Hepatic steatosis. ACT 112: Positive. There are findings on this exam that require communication between the performing entity and the patient following Patient Test Result Information Act ([place] Act 112) guidelines. Electronically signed by: Lex Granados M.D. 02/17/2021 10:45 AM Hospital Course (1) Lower GI bleed: Concerning for colon cancer initially with 2.5 cm lobulated density in ascending colon. Also with extravasating contrast. the lobulated density might also be a blood clot COlon prep completed and pt had no further bleeding at the end of the prep Colonoscopy with 5 polyps removed, no bleeding and no mass seen Recommend repeat CT abd/pel with ORAL and IV contrast in 2-3 weeks with PCP to ensure no missed mass in colon on scope Pathology results of colon polyps pending at time of discharge Was tolerating regular diet at time of discharge (2) Acute blood loss anemia: Acute blood loss anemia in setting of GI bleed, Colon CA ruled out Hgb dropped to 9.2 and then back up to 10.2 prior to discharge No transfusion needed (3) Pulmonary nodule: 9 mm solid right lower lobe pulmonary nodule seen on CT abd/pel. Repeat CT chest in 3 months recommended. (4) History of cataract surgery: continue home eyedrops (5) Abnormal CT scan, colon: As above Dispo-doing well, stable for discharge to home Total Time Total Time Spent Total Time Spent (In Minutes): 35 min Total Time Includes: Examination of the Patient, Discharge Planning, Medication Reconciliation and Communication With Other Providers (GI) Discharge Plan Discharge Items Patient Disposition: Home - Self-Care Reason For Visit: LOWER GI BLEED Discharge Diagnosis: Lower GI Bleed, acute blood loss anemia Condition on Discharge: Good Activity: As commented below Lifting: Gradually increase as tolerated Bathing: No limitations Exercise/Sports: Gradually increase as tolerated Driving/Machine Use: Resume 1 day after discharge Non-emergency contact: Primary Care Provider Call non-emergency contact if: you have any medication questions and your symptoms worsen Follow-up/Referrals: Jessica Ernst PA-C [Primary Care Provider] - (Please follow up within 1-2 weeks.) Diet: Regular Addtl Attending Provider Instructions: You were admitted with a GI bleed that stopped on its own. You had a colonoscopy that was normal except 5 small polyps were removed. There was no tumor or bleeding seen on the colonoscopy. Please have your PCP order you a CT scan of the abdomen and pelvis with ORAL and IV contrast in 2-3 weeks to reassess that area of the colon that appeared abnormal previously. Please STOP taking your daily aspirin. You were also found to have a 9 mm solid right lower lobe pulmonary nodule. Repeat CT chest is recommended in 3 months. Pending Studies at Discharge: No Stand-Alone Forms: My [facility] [email or web address] Medications and DC Order Prescriptions: Continued cyanocobalamin (vitamin B-12) [Vitamin B-12] 1,000 mcg Tablet 0 mcg PO QAM RF: 0 garlic 1,000 mg Capsule 0 mg PO QAM RF: 0 cholecalciferol (vitamin D3) [Vitamin D3] 25 mcg (1,000 unit) Tablet 0 mcg PO QAM RF: 0 omega [id number]-fish oil [Fish Oil] 1,200 (144-216) mg Capsule 1 cap PO QAM RF: 0 Discontinued aspirin [Aspir-81] 81 mg Tablet,Delayed Release (Dr/Ec) 81 mg PO QAM RF: 0 Discharge Orders: Discharge Order (Routine); Ordered 02/18/21 Ordered By: Dorina Alexander Admission Data Admit Date/Time: 02/17/21 11:53 Attending Provider: Dorina Alexander Admit Provider: Cristino Akins Primary Care Provider: Jessica Ernst Other Providers: Cristino Akins ; Luke Gonzalez Other Interventions: Discharge Summary Assessment (RN) Last Done: 02/18/21 17:08 Coding Level of Care Code 84871 OBS Care - Discharge Diagnoses Lower GI bleed K92.2 Acute blood loss anemia D62 Pulmonary nodule R91.1 History of cataract surgery Z98.49 Laterality: unspecified laterality Abnormal CT scan, colon R93.3
== END 2021-02-18 19:30 | disposition home or self-care (01) ==
LOC: ED 08:53 → INTOOBSV 11:53 → 3W 11:53 → SUATTDRO 11:53 → 3W 16:14